=== PATIENT | female | born 1995 | race Caucasian/White ===

== ENCOUNTER → 2018-09-02 16:23 | Outpatient (CLI) | payer OTHER, MEDICAID, SELFPAY ==
[2018-09-02 17:39] LABS: Alanine Aminotransferase 20 IU/L (9-52); Albumin 4.1 g/dL (3.5-5.0); Albumin Globulin Ratio 1.2 (1.0-2.8); Alkaline Phosphatase 73 U/L (38-126); Aspartate Aminotransferase 22 IU/L (14-36); BUN Creatinine Ratio 8.8 (6-22); Bilirubin Total 0.5 mg/dL (0.2-1.3); Blood Urea Nitrogen 7 mg/dL (7-17); Calcium 9.4 mg/dL (8.4-10.2); Carbon Dioxide 29 mmol/L (22-32); Chloride 107 mmol/L (98-107); Cholesterol 171 mg/dL (140-199); Estimated Glomerular Filt Rate > 60.0 mL/min (>60); Globulin 3.3 g/dL (1.7-4.1); Glucose 90 mg/dL (70-100); HDL Cholesterol 36 mg/dL (40-60); HEMOLYSIS < 15 (0-50); LDL Cholesterol Calculated 102 mg/dL (<100); Potassium 3.6 mmol/L (3.4-5.1); Sodium 143 mmol/L (137-145); Total Protein 7.4 g/dL (6.3-8.2); Triglycerides 167 mg/dL (35-150)
[2018-09-02 17:41] LABS: Add Manual Diff / Slide Review NO; Basophils Absolute Auto 100 /uL (0-100); Basophils Percent Auto 0.6 % (0-2); Eosinophils Absolute Auto 100 /uL (0-450); Eosinophils Percent Auto 0.9 % (2-4); Hematocrit 40.9 % (36-46); Lymphocytes Absolute Auto 3300 /uL (1100-4500); Lymphocytes Percent Auto 40.3 % (25-40); Mean Corpuscular HGB Conc 34.3 % (30-36); Mean Corpuscular Hemoglobin 30.7 PG (26-34); Mean Corpuscular Volume 89.6 fL (80-100); Monocytes Absolute Auto 700 /uL (0-900); Monocytes Percent Auto 8.3 % (3-14); Neutrophils Absolute Auto 4100 /uL (1500-7000); Neutrophils Percent Auto 49.9 % (50-75); Platelet Count 343 X10^3/uL (150-400); Red Blood Cell Count 4.57 X10^6/uL (4.0-5.2); Red Cell Distribution Width 13.3 % (11.6-14.8); White Blood Cell Count 8.3 X10^3/uL (4.5-11.0)
== END ==
PROVIDERS: PCP Specialist; Visit Provider Nurse Practitioner Family
DX: R10.9 Unspecified abdominal pain (principal); Z00.00 Encounter for general adult medical examination without abnormal findings; Z13.6 Encounter for screening for cardiovascular disorders
CPT/HCPCS: 36415; 80053; 80061; 85025

== ENCOUNTER → 2018-09-07 09:43 | Outpatient (CLI) | payer OTHER, MEDICAID, SELFPAY ==
--- NOTE | 2018-09-07 09:44 | DI.US.S_ITS ---
PROCEDURE: US ABDOMEN COMPLETE INDICATIONS: ABDOMINAL CRAMPING AND BLOATING TECHNIQUE: Real-time scanning was performed of the abdominal and retroperitoneal organs, with image documentation. COMPARISON: None. FINDINGS: Liver: Liver is diffusely increased in echogenicity. No focal hepatic abnormalities identified. Normal hepatic size. Gallbladder: No gallstones identified. Normal gallbladder wall. No pericholecystic fluid. Negative sonographic Hooks sign. Biliary ducts: Intrahepatic bile ducts are non-dilated. Extrahepatic bile duct caliber measures 3.8 mm. Normal is 6-7 mm or less in diameter, or 10 mm or less post-cholecystectomy. Pancreas: Visualized portions of the pancreas are sonographically normal. Spleen: Spleen is normal in size and homogeneous in echotexture. Kidneys: Kidneys are normal in size and echotexture. Right kidney measures 13.3 cm long; left kidney measures 12.3 cm long. No hydronephrosis or nephrolithiasis. No solid masses. Aorta: Visualized aorta is normal in caliber at less than 3 cm. Iliacs: Proximal common iliac arteries are normal in caliber at less than 2.5 cm. IVC: Intrahepatic inferior vena cava is patent. Miscellaneous: No free abdominal fluid. IMPRESSION: Increased hepatic echogenicity noted possibly related to hepatic steatosis but other sources of hepatocellular disease cannot be excluded. Recommend clinical correlation. No source for lower abdominal cramping and bloating. Dictated by: Flex BARBOZA Interpreted: Kelton Hoffman MD on 09/07/2018 at 11:22 Approved by: Kelton Hoffman M.D. on 09/08/2018 at 8:50
== END ==
PROVIDERS: PCP Specialist; Visit Provider Nurse Practitioner Family
DX: R10.30 Lower abdominal pain, unspecified (principal); R14.0 Abdominal distension (gaseous)
CPT/HCPCS: 76700

== ENCOUNTER → 2018-09-19 16:19 | Outpatient (CLI) | payer OTHER, MEDICAID, SELFPAY ==
--- NOTE | 2018-09-19 16:21 | DI.US.S_ITS ---
PROCEDURE: US PELVIC COMPLETE INDICATIONS: LOW ABD/PELVIC CRAMPING TECHNIQUE: Real-time scanning was performed of the pelvic organs, with image documentation. Additional endovaginal scanning was necessary due to incomplete visualization of the adnexal and endometrial structures by transabdominal scanning. COMPARISON: None. FINDINGS: Transabdominal scanning: Limited scanning through the kidneys shows no hydronephrosis. No pathologic free abdominal or pelvic fluid. Endovaginal scanning: Uterus: Uterus is normal in size at 7.5 x 4.5 x 5.4 cm. The endometrium measures 2.7 mm in combined thickness. Ovaries: Ovaries normal bilaterally measuring 2.8 x 2.3 x 2.1 cm on the right and 3.7 x 1.8 x 2.2 cm on the left. IMPRESSION: No source for pelvic pain identified. Dictated by: Flex BARBOZA Interpreted: Yecenia Bernal MD on 09/19/2018 at 17:03 Approved by: Yecenia Bernal M.D. on 09/20/2018 at 11:03
== END ==
PROVIDERS: PCP Nurse Practitioner Family; Visit Provider Nurse Practitioner Family
DX: R10.30 Lower abdominal pain, unspecified (principal); R10.2 Pelvic and perineal pain
CPT/HCPCS: 76830; 76856

== ENCOUNTER → 2018-12-22 14:26 | Outpatient (CLI) | payer OTHER, MEDICAID, SELFPAY ==
[2018-12-22 15:31] LABS: HCG Quantitative /Beta subunit < 2.39 mIU/mL; Prolactin 14.6 ng/mL (3.0-18.6)
[2018-12-22 16:52] LABS: Follicle Stimulating Hormone 2.03 mIU/mL
[2018-12-22 17:06] LABS: Thyroid Stimulating Hormone 2.85 uIU/mL (0.47-4.68)
== END ==
PROVIDERS: Family Provider Nurse Practitioner Family; PCP Nurse Practitioner Family; Visit Provider Specialist
DX: N91.2 Amenorrhea, unspecified (principal)
CPT/HCPCS: 36415; 83001; 84146; 84443; 84702

== ENCOUNTER → 2019-04-14 09:17 | Outpatient (CLI) | payer OTHER, MEDICAID, SELFPAY ==
[2019-04-14 11:13] LABS: HCG Quantitative /Beta subunit 11347 mIU/mL
== END ==
PROVIDERS: Family Provider Nurse Practitioner Family; PCP Nurse Practitioner Family; Visit Provider Specialist
DX: O20.0 Threatened abortion (principal); Z34.81 Encounter for supervision of other normal pregnancy, first trimester
CPT/HCPCS: 36415; 84702; 86850; 86900; 86901

== ENCOUNTER → 2019-04-17 13:39 | Outpatient (CLI) | payer OTHER, MEDICAID, SELFPAY ==
[2019-04-17 16:18] LABS: HCG Quantitative /Beta subunit 9045 mIU/mL
== END ==
PROVIDERS: Family Provider Nurse Practitioner Family; PCP Nurse Practitioner Family; Referring Provider Specialist; Visit Provider Specialist
DX: O20.0 Threatened abortion (principal)
CPT/HCPCS: 36415; 84702

== ENCOUNTER → 2020-07-24 13:40 | Outpatient (CLI) | payer OTHER, MEDICAID, SELFPAY ==
[2020-07-24 15:29] LABS: Pregnancy Test Urine Negative (Negative)
== END ==
PROVIDERS: Family Provider Nurse Practitioner Family; PCP Nurse Practitioner Family; Referring Provider Nurse Practitioner Family; Visit Provider Nurse Practitioner Family
DX: Z30.011 Encounter for initial prescription of contraceptive pills (principal)
CPT/HCPCS: 81025

== ENCOUNTER → 2021-01-15 10:50 | Outpatient (CLI) | payer OTHER, MEDICAID, SELFPAY ==
--- NOTE | 2021-01-15 10:51 | DI.US.S_ITS ---
LIMITED ULTRASOUND OF RIGHT BREAST: 01/15/2021 CLINICAL: Palpable right breast lump. No prior exams were available for comparison. Real-time ultrasound of the right breast 10 o'clock region was performed on the area of interest. No discrete cystic or solid mass lesion identified in the area of palpable abnormality. IMPRESSION: NEGATIVE There is no sonographic evidence of malignancy. There is no abnormality seen in the right breast to correspond with the palpable abnormality at 10 o'clock, however, clinical followup is recommended. This exam was interpreted at Station ID: [id number]. Electronically Signed By: Aiden Campos M.D. ddp/:01/15/2021 14:47:05 Entry: - 01/16/2021 07:38:30 Ultrasound BI-RADS: 1 Negative
--- NOTE | 2021-01-15 10:51 | DI.US.S_ITS ---
LIMITED ULTRASOUND OF LEFT BREAST: 01/15/2021 CLINICAL: Palpable left breast lump. No prior exams were available for comparison. Real-time ultrasound of the left breast 2 o'clock region was performed on the area of interest. No discrete cystic or solid mass lesion identified in the area of palpable abnormality. IMPRESSION: NEGATIVE There is no sonographic evidence of malignancy. There is no abnormality seen in the left breast to correspond with the palpable abnormality at 2 o'clock, however, clinical followup is recommended. This exam was interpreted at Station ID: [id number]. Electronically Signed By: Aiden Campos M.D. ddp/:01/15/2021 14:48:27 letter sent: Clinical Evaluation Ultrasound BI-RADS: 1 Negative
== END ==
PROVIDERS: Family Provider Nurse Practitioner Family; PCP Nurse Practitioner Family; Referring Provider Nurse Practitioner; Visit Provider Nurse Practitioner
DX: N63.11 Unspecified lump in the right breast, upper outer quadrant (principal); N63.21 Unspecified lump in the left breast, upper outer quadrant
CPT/HCPCS: 76642

== ENCOUNTER → 2021-04-02 10:40 | Outpatient (CLI) | payer OTHER, MEDICAID, SELFPAY ==
[2021-04-02 14:00] LABS: HCG Quantitative /Beta subunit < 2.4 mIU/mL
== END ==
PROVIDERS: Family Provider Nurse Practitioner Family; PCP Nurse Practitioner Family; Referring Provider Nurse Practitioner; Visit Provider Nurse Practitioner
DX: N91.2 Amenorrhea, unspecified (principal)
CPT/HCPCS: 36415; 84702

== ENCOUNTER → 2022-05-22 12:53 | Outpatient (CLI) | payer OTHER, MEDICAID, SELFPAY ==
[2022-05-22 13:51] LABS: Add Manual Diff / Slide Review NO; Basophils Absolute Auto 0 /uL (0-100); Basophils Percent Auto 0.4 % (0-2); Eosinophils Absolute Auto 100 /uL (0-450); Eosinophils Percent Auto 0.6 % (2-4); Hematocrit 40.5 % (36-46); Hemoglobin 13.4 g/dL (12.0-16.0); Lymphocytes Absolute Auto 5100 /uL (1100-4500); Lymphocytes Percent Auto 43.2 % (25-40); Mean Corpuscular HGB Conc 33.1 % (30-36); Mean Corpuscular Hemoglobin 29.1 PG (26-34); Mean Corpuscular Volume 87.9 fL (80-100); Monocytes Absolute Auto 800 /uL (0-900); Monocytes Percent Auto 6.8 % (3-14); Neutrophils Absolute Auto 5800 /uL (1500-7000); Platelet Count 381 X10^3/uL (150-400); Red Blood Cell Count 4.61 X10^6/uL (4.0-5.2); Red Cell Distribution Width 13.2 % (11.6-14.8); White Blood Cell Count 11.9 X10^3/uL (4.5-11.0)
[2022-05-22 14:06] LABS: Alanine Aminotransferase 21 IU/L (<35); Albumin Globulin Ratio 1.2 (1.0-2.8); Alkaline Phosphatase 75 U/L (38-126); Aspartate Aminotransferase 22 IU/L (14-36); BUN Creatinine Ratio 10.4 (6-22); Bilirubin Total 0.4 mg/dL (0.2-1.3); Blood Urea Nitrogen 8 mg/dL (7-17); Calcium 9.2 mg/dL (8.4-10.2); Carbon Dioxide 27 mmol/L (22-32); Chloride 103 mmol/L (98-107); Cholesterol 156 mg/dL (140-199); Estimated Glomerular Filt Rate > 60 mL/min (>60); Globulin 3.3 g/dL (1.7-4.1); Glucose 87 mg/dL (70-100); HDL Cholesterol 40 mg/dL (40-60); HEMOLYSIS < 15 (0-50); LDL Cholesterol Calculated 94 mg/dL (<100); Potassium 3.9 mmol/L (3.4-5.1); Sodium 138 mmol/L (137-145); Total Protein 7.3 g/dL (6.3-8.2); Triglycerides 108 mg/dL (35-150)
[2022-05-22 14:22] LABS: Free T3, Triiodothyronine Free 4.38 pg/mL (2.77-5.27); Free T4, Direct Thyroxine 1.23 ng/dL (0.78-2.19)
[2022-05-22 14:35] LABS: Thyroid Stimulating Hormone 2.96 uIU/mL (0.47-4.68)
== END ==
PROVIDERS: Family Provider Nurse Practitioner Family; PCP Nurse Practitioner; Referring Provider Nurse Practitioner; Visit Provider Nurse Practitioner
DX: Z00.00 Encounter for general adult medical examination without abnormal findings (principal)
CPT/HCPCS: 36415; 80053; 80061; 84439; 84443; 84481; 85025

== ENCOUNTER → 2022-06-04 12:45 | Outpatient (CLI) | payer OTHER, MEDICAID, SELFPAY ==
[2022-06-04 13:28] LABS: Appearance Urine UA CLEAR; Bilirubin Urine UA NEGATIVE (NEGATIVE); Color Urine UA YELLOW; Glucose Urine UA NEGATIVE (Negative); Ketones Urine UA NEGATIVE (NEGATIVE); Leukocyte Esterase Urine UA NEGATIVE (NEGATIVE); Nitrite Urine UA NEGATIVE (Negative); Occult Blood Urine UA NEGATIVE (Negative); Protein Urine UA NEGATIVE (Negative)
[2022-06-04 13:29] LABS: pH Urine UA 6.5 (4.5-8.0)
[2022-06-04 13:35] LABS: Bacteria Urine None Seen; Culture Indicated Urine Cult Not Indicated; RBC Urine None Seen (0-5/HPF); Urine Comments Microscopic Normal; WBC Urine None Seen (0-5/HPF)
== END ==
PROVIDERS: Family Provider Nurse Practitioner Family; PCP Nurse Practitioner; Referring Provider Nurse Practitioner; Visit Provider Nurse Practitioner
DX: D72.829 Elevated white blood cell count, unspecified (principal)
CPT/HCPCS: 81001

== ENCOUNTER 2022-08-18 17:54 | Emergency (ER) | payer OTHER, MEDICAID, SELFPAY ==
[2022-08-18 18:13] VITALS: BP 135/77; PULSE 80; RESP 18; TEMP 36.4; O2SAT 98; BMI 35.9
--- NOTE | 2022-08-18 18:20 | DI.RAD.S_ITS ---
PROCEDURE: XR TIBIA FIBULA LT 2V INDICATIONS: pain TECHNIQUE: 2 views of the tibia and fibula were acquired. COMPARISON: None. FINDINGS: No fractures or dislocations. No suspicious bony lesions. IMPRESSION: No acute osseous abnormality. If symptoms persist, follow-up radiographs and/or CT or MRI may be helpful for further evaluation. Dictated by: Ashok Yoo M.D. on 08/18/2022 at 19:21 Approved by: Ashok Yoo M.D. on 08/18/2022 at 19:22
--- NOTE | 2022-08-18 19:52 | PC.NURSE ---
Left tib fib. xray ordered NIO under Dr. Nur should have been under dr. arnett.
--- NOTE | 2022-08-18 23:45 | ED.EXTPRO ---
HPI - Extremity Problem General Chief complaint: Extremity Problem,Nontraumatic Stated complaint: heard a pop in lt houser, pain Time Seen by Provider: 08/18/22 23:44 Source: patient Mode of arrival: Family Vehicle History of Present Illness HPI Narrative: This is a 26-year-old female who states she was walking the day before yesterday when she felt a pop. It was in her mid houser area radiating down towards her ankle. Patient states has been persistent with weight-bearing and increasing over time. No warmth, no redness, no swelling. Pain with weight-bearing but not into the foot. Plantar flexion and dorsiflexion increase the pain. She states it is about fpc down the leg. Patient states no pain above. She is not had similar symptoms in the past. She was states she just walking on the sidewalk. Pain has not resolved. She has not had similar in the past. Related Data Previous Rx's Medication Instructions Recorded clobetasol 0.05 % topical ointment 1 applic topical QAM AND QPM #30 06/04/22 grams norgestrel 0.3 mg-ethinyl See Rx Instructions .Route 07/25/22 estradiol 30 mcg tablet (Elinest) .COMPLEX #84 tabs Allergies Allergy/AdvReac Type Severity Reaction Status Date / Time No Known Drug Allergies Allergy Unknown Verified 08/18/22 18:13 [NO KNOWN DRUG ALLERGIES] Review of Systems Review of Systems ROS Unobtainable: All systems reviewed & are unremarkable except as noted in HPI and below Patient History Medical History Anemia Depression Depression affecting , Gestational diabetes (~2015) Hypertension affecting in third trimester Miscarriage Oral contraception initial prescription Surgical History Anesthesia Status post delivery (08/16/15) Status post delivery (05/14/17) [employer] teeth removed (~03/09/16) Family History Mother Breast cancer Grandmother Breast cancer Grandmother Breast cancer Grandfather Diabetes mellitus Social History marital status: details: Santi Bae [phone] number of children: 2 household members: significant other and children lives independently: Yes housing: other (trailer ) pets and animals: Yes (1 dog, 1 cat, 1 ferret, 1 bird, 1 bearded dragon, 1 snake. 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) occupational status: employed (works at [employer]) current occupational exposures/hazards: No reina/church: [employer] special reina needs: No seatbelt use: always helmet use: No water heater temp set < 120 deg: Yes working smoke detector in home: Yes fire extinguisher in home: Yes carbon monox detector in home: Yes firearms in home: No do you feel safe at home: Yes Smoking Status: Current every day smoker second hand exposure: No alcohol intake: never substance use type: does not use during the past year weight has: other (Has been all over the past year) well-balanced diet: daily or most days daily servings fruits/ve-1 caffeine: Yes eating out: rarely or never Type(s) of exercise: walking (While working) frequency: 3-4 times per week Smoking Status: Current every day smoker tobacco type: cigarettes and vaping alcohol intake frequency: 0-2 drinks per day Substance Use Type: marijuana Exam Narrative Exam Narrative: GENERAL: Alert and oriented x three, female in mild distress. HEENT: Head normocephalic, atraumatic, EOMI, pupils reactive, face symmetric, moist mucous membranes NECK: Supple, full range of motion EXTREMITIES: Normal range of motion, no clubbing or edema. Neurovascularly intact. Patient has not increased discomfort with dorsiflexion plantar flexion within normal range. No discrete bony tenderness. She does have some very mild discomfort over the anterior houser. No swelling, no warmth, no redness, no ecchymosis, no changes. Normal range of motion otherwise with no bony tenderness appreciated. NEUROLOGICAL: Cranial nerves II through XII grossly intact. Moving all extremities SKIN: Warm, dry, no petechiae, no rashes or lesions. Initial Vital Signs Initial Vital Signs: Vital Signs Temperature 97.5 F L 08/18/22 18:13 Pulse Rate 80 08/18/22 18:13 Respiratory Rate 18 08/18/22 18:13 Blood Pressure 135/77 08/18/22 18:13 Pulse Oximetry 98 08/18/22 18:13 Oxygen Delivery Method Room Air 08/18/22 18:13 Course Orders Ordered: ED Orders 08/18/22 18:20 XR tibia fibula LT 2V Stat 08/18/22 19:36 XR tibia fibula RT 2V Stat Vital Signs Vital signs: Vital Signs - 8 hr 08/19/22 00:12 Pulse Rate 67 Respiratory Rate 16 Blood Pressure 150/87 H Pulse Oximetry 98 Oxygen Delivery Method Room Air MDM - Extremity (Nontraumatic) Imaging Data Extremity x-ray #1: Radiologist's Impression: [address] [address] XRay Report Signed Patient: Gabriela Bae MR#: [id number] : 1995 Acct:[id number] Age/Sex: 26 / F Date of Service: 08/18/22 Loc: ED Accession Number: [id number] ?? Procedure: XR tibia fibula LT 2V Ordering Provider: Shila Nur MD PROCEDURE:? XR TIBIA FIBULA LT 2V ? INDICATIONS:? pain ? TECHNIQUE:? 2 views of the tibia and fibula were acquired.? ? COMPARISON:? None. ? FINDINGS:? ? No fractures or dislocations.? No suspicious bony lesions.? ? ? IMPRESSION:? No acute osseous abnormality.? If symptoms persist, follow-up radiographs and/or CT or MRI may be helpful for further evaluation. ? ? Dictated by: Ashok Yoo M.D. on 08/18/2022 at 19:21 ? ? Approved by: Ashok Yoo M.D. on 08/18/2022 at 19:22?? [facility] Narrative Medical decision making narrative: This is a 26-year-old female who presents with a complaint of a pop sensation and progressive pain in her mid leg. Patient states worse with weight-bearing. X-ray tib-fib is negative. Patient does not have any tenderness over the foot, ankle or knee. Minimal to no tenderness over the bones themselves in her lower extremity. No obvious skin changes. Discussed with patient possible causes. Plan for crutches, weight-bearing as tolerated with plan for follow up in 7-10 days persistent symptoms and return precautions for new symptoms. Discharge Plan Departure Patient Disposition: Home Clinical Impression: Left leg pain Instructions: DI for Leg Pain Activity Restrictions/Additional Instructions: Follow-up in 7-10 days if your symptoms are not improving. You may need repeat imaging or further workup if your symptoms have not resolved. Please call to set up an appointment. You may weightbear as tolerated. Elevated affected body part to decrease swelling. OK to use ice pack on the affected body part. Use for 15-20 minutes each time, for 5-6x per day. If you develop worsening pain, numbness, tingling, discoloration of the affected body part, either see your doctor for an urgent re-assessment, or return to the Emergency Department. Return to the Emergency Department for any new or worsening symptoms. Prescriptions: No Action Elinest 0.3-30 mg-mcg tablet See Rx Instructions .ROUTE .COMPLEX Qty: 84 3RF Dose Instruction: TAKE 1 TABLET BY MOUTH ONCE DAILY FOR CONTROL AND CYCLE REGULATION. DUE FOR FASTING LABS LATE MAY 2022. Rx Instructions: TAKE 1 TABLET BY MOUTH ONCE DAILY FOR CONTROL AND CYCLE REGULATION. DUE FOR FASTING LABS LATE MAY 2022. clobetasol 0.05 % ointment 1 applic topical QAM AND QPM Qty: 30 1RF Rx Instructions: apply to affected area between breasts morning and evening Referrals: Makayla Duvall ARNP [Primary Care Provider] - Stand Alone Forms: Patient Portal/API, Work Release Note
[2022-08-19 00:12] VITALS: BP 150/87; PULSE 67; RESP 16; O2SAT 98
== END 2022-08-19 00:13 | disposition home or self-care (01) ==
PROVIDERS: Emergency Provider Emergency Medicine; Family Provider Nurse Practitioner Family; PCP Nurse Practitioner
DX: M79.662 Pain in left lower leg (principal)
CPT/HCPCS: 73590; 99283